=== PATIENT | male | born 1950 | race Caucasian/White ===

== ENCOUNTER 2017-05-14 14:02 | Emergency (ER) | payer OTHER | END 2017-05-14 15:45 | disposition home or self-care (01) | LOC: FER 14:02 | DX: I73.9 Peripheral vascular disease, unspecified (principal); I10 Essential (primary) hypertension; I25.2 Old myocardial infarction; Z85.72 Personal history of non-Hodgkin lymphomas; Z79.82 Long term (current) use of aspirin; Z79.01 Long term (current) use of anticoagulants; Z95.1 Presence of aortocoronary bypass graft; Z79.899 Other long term (current) drug therapy | CPT/HCPCS: 99283 ==

== ENCOUNTER 2022-03-20 10:37 | Emergency (ER) | payer OTHER ==
[~2022-03-20] VITALS: Ht 175.3 cm; Wt 83.9 kg
[~2022-03-20 10:37] MED LIST: AUGMENTIN 875-1 EACH PO
[2022-03-20 11:56] LABS: BASOPHIL 1.2 % (0-2); EOSINOPHIL 14.2 % (0-7); HCT 44.1 % (42.0-52.0); HGB 14.6 g/dl (13.2-18.0); LYMPHOCYTE 15.2 % (15-48); MCH 30.6 pg (25.0-31.0); MCHC 33.1 g/dL (32.0-36.0); MCV 92.5 fL (78.0-100.0); MONOCYTE 5.7 % (0-12); MPV 9.9 fL (6.0-9.5); NEUTROPHIL 62.9 % (41-80); NRBC 0; PLT 200 K/uL (150-400); RBC 4.77 M/uL (4.70-6.00); RDW 14.5 % (11.5-14.0); WBC 6.5 K/uL (4.0-10.5)
[2022-03-20 12:13] LABS: BUN/CREAT RATIO (CALC) 12.8 RATIO; CREATININE 1.49 mg/dL (0.67-1.17); POTASSIUM 4.2 mmol/L (3.5-5.1)
== END 2022-03-20 15:45 | disposition home or self-care (01) ==
LOC: FER 10:37
PROVIDERS: Emergency Medicine
DX: I11.0 Hypertensive heart disease with heart failure (principal); I50.9 Heart failure, unspecified
CPT/HCPCS: 36415; 71045; 80048; 83880; 84484; 85025; 93005